=== PATIENT | male | born 1965 | race Caucasian/White ===

== ENCOUNTER 2023-06-16 12:23 | Emergency (ER) | payer MEDICAID, SELFPAY ==
[2023-06-16 13:20] LABS: Basophils # 0.1 10^3/uL (0.0-0.1); Basophils % 1.2 %; Eosinophils # 0.3 10^3/uL (0.0-0.8); Hematocrit 46.4 % (37-53); Lymphocytes # 1.9 10^3/uL (0.8-4.8); Lymphocytes % 24.1 %; Mean Corpuscular HGB Conc 32.5 g/dL (30-55); Mean Corpuscular Hemoglobin 28.5 pg (27-33); Mean Corpuscular Volume 87.7 fl (82-101); Mean Platelet Volume 10.4 fL (7.4-10.4); Monocytes # 0.6 10^3/uL (0.2-0.9); Neutrophils # 4.81 10^3/uL (1.8-7.7); Neutrophils % 62.4 %; Nucleated Red Blood Cells % 0 %; Platelet Count 247 10^3/cmm (157-399); Red Blood Count 5.29 10^6/uL (3.85-5.65); Red Cell Distribution Width 12.9 % (12.1-15.1); White Blood Count 7.71 10^3/uL (3.29-11.43)
[2023-06-16 13:25] VITALS: BP 171/104; PULSE 68; RESP 16; TEMP 36.7; O2SAT 96; BMI 41.8
[2023-06-16 13:31] LABS: Alanine Aminotransferase 38 U/L (0-41); Albumin Level 4.1 g/dL (3.5-5.2); Alkaline Phosphatase 75 U/L (40-130); Anion Gap 15.6 (5-19); Aspartate Amino Transferase 24 U/L (0-40); Blood Urea Nitrogen 13 mg/dL (6-20); Calcium 9.2 mg/dL (8.5-10.5); Carbon Dioxide 24 mmol/L (22-29); Chloride 102 mmol/L (98-107); Glomerular Filtration Rate 86.7 mL/min (90-130); Glucose 130 mg/dL (65-115); Osmolality Calculated 288 mOsm/kg (285-295); Potassium 3.6 mmol/L (3.5-5.1); Sodium 138 mmol/L (136-145); Total Bilirubin 0.5 mg/dL (0.15-1.2); Total Protein 8.1 g/dL (6.6-8.7)
--- NOTE | 2023-06-16 14:04 | W.ED.MALEGU ---
HPI - Male Genitourinary General: Chief complaint: Urogenital-Male Stated complaint: blood in urine Time Seen by Provider: 06/16/23 14:03 Source: patient Mode of arrival: ambulatory Limitations: no limitations History of Present Illness: Patient is a 57-year-old male presents to ED today with a complaint of painless hematuria with clots. Patient states symptoms have been present over the past 1.5 weeks. He states his urine will be gross hematuria in the mornings and sometimes lighten up through the day before returning dark again in the evenings. He states he has passed large clots. He states sometimes the clots seem to obstruct his urethra and he has to push to urinate. Patient denies abdominal or back pain. He does have chronic back pains however states these have been present for 20 years and at baseline. He has no history of kidney stones. He is not a smoker. No family history of bladder cancers. MD Complaint: other (hematuria) Onset (ago): day(s) Duration: constant Severity: moderate Relieving factors: none Exacerbating factors: none Associated symptoms: Reports no associated symptoms; Deny dysuria Review of Systems Const: Denies: fever(s), chills, body aches, fatigue or malaise Card: Denies: chest pain Resp: Denies: dyspnea GI: Denies: abdominal pain : Reports: difficulty urinating (sometimes when he feels clots are obstructing his urethra); Denies: flank pain, dysuria, urinary frequency, urinary urgency, urinary hesitancy or urinary dribbling Musc: Reports: back pain ([id number] baseline); Denies: neck pain Skin/Breast: Denies: rash Neuro: Denies: headache(s), numbness in extremities, weakness in extremities, sensory changes or dizziness Physical Exam Const: COMMON NORMALS: no acute distress, patient oriented x3, no limitations, alert and well nourished GENERAL APPEARANCE: cooperative NUTRITIONAL APPEARANCE: obese ORIENTATION/CONSCIOUSNESS: Yes awake, Yes oriented to person, Yes oriented to place and Yes oriented to time Resp: COMMON NORMALS: normal respiratory effort and clear to auscultation bilaterally AUSCULTATION: clear to auscultation bilaterally Cardio: COMMON NORMALS: regular rate and regular rhythm RATE: regular rate RHYTHM: regular rhythm GI: COMMON NORMALS: Normal to inspection, nondistended, normoactive bowel sounds present, Soft to palpation, non-tender, No hepatosplenomegaly present and no masses PALPATION: Yes Soft to palpation and Yes No hepatosplenomegaly present : COMMON NORMALS: Yes no CVA tenderness BLADDER/KIDNEY EXAM: Yes no CVA tenderness Back/Pelvis: COMMON NORMALS: no CVA tenderness and thoracic and lumbar spine normal to inspection Neuro: COMMON NORMALS: patient oriented x3 SENSORIUM/ORIENTATION: Yes alert, Yes oriented to person, Yes oriented to place and Yes oriented to time Course Vital Signs: Vital signs: Vital Signs Temperature 98.1 F 06/16/23 13:25 Pulse Rate 72 06/16/23 16:21 Respiratory Rate 18 06/16/23 16:21 Blood Pressure 159/103 06/16/23 16:21 Pulse Oximetry 97 06/16/23 16:21 Oxygen Delivery Me thod Room Air 06/16/23 16:21 [facility] - Male Medical Decision Making Patient is a nice 57-year-old male here for complaints of painless hematuria over the past week. He has been passing clots. Blood work showing a normal white count. His kidney functions are normal. UA showing a large amount of blood. He does have positive nitrates and 5-[address] scan does show a bladder mass suspicious for malignancy. He does have several low-density areas in both kidneys that could represent metastatic disease. Radiologist commented these could be multifocal pyelonephritis however clinically I have a low suspicion for this. He also has a few pulmonary nodules as well as a left hepatic lesion all of which theoretically could be malignant. Patient does not have a primary care provider that he sees. I will have case management set him up with a stat urology appointment for cystoscopy and biopsy. I will also have them set him up with primary care provider. Return to ED precautions given. I will go ahead and place him on antibiotics given the UA findings. Medical Records I reviewed the patient's medical records. Lab Data I reviewed the patient's lab results. 06/16/23 12:57 06/16/23 12:57 Radiology Impressions Abdomen/Pelvis CT 06/16/23 14:33 IMPRESSION: 1. 2.3 cm x 2.3 cm x 2.5 cm urinary bladder mass near the right ureterovesical junction is suspicious for malignancy. Cystoscopy is recommended. 2. Several low-density areas in both kidneys could be metastatic disease. These could be multifocal pyelonephritis. Less likely these could be developing infarcts. Contrast-enhanced MRI could characterize these further. 3. A few 2 mm noncalcified pulmonary nodules. For patients at low risk (minimal or absent history of smoking and of other known risk factors), no routine follow-up is indicated. For patients at high risk (history of smoking or of other known risk factors), consider optional CT Chest at 12 months. (Reference: Rubio). 4. 1 cm low-density left hepatic lesion could be a cyst or hemangioma. Less likely this is a metastasis. Recommend further evaluation of this with contrast-enhanced MRI. 5. Additional details as above. REFERENCES: Rubio Jay, et al. Guidelines for Management of Incidental Pulmonary Nodules Detected on CT Images: From the Fleischner Society 2017. Radiology. 2017;284(1):228-243. Laboratory Results WBC 7.71 10^3/uL (3.29-11.43) 06/16/23 12:57 RBC 5.29 10^6/uL (3.85-5.65) 06/16/23 12:57 Hgb 15.10 g/dL (11.27-16.99) 06/16/23 12:57 Hct 46.4 % (37-53) 06/16/23 12:57 MCV 87.7 fl (82-101) 06/16/23 12:57 MCH 28.5 pg (27-33) 06/16/23 12:57 MCHC 32.5 g/dL (30-55) 06/16/23 12:57 RDW 12.9 % (12.1-15.1) 06/16/23 12:57 Plt Count 247 10^3/cmm (157-399) 06/16/23 12:57 MPV 10.4 fL (7.4-10.4) 06/16/23 12:57 Neut % (Auto) 62.4 % 06/16/23 12:57 Lymph % (Auto) 24.1 % 06/16/23 12:57 Snyder % (Auto) 8.0 % 06/16/23 12:57 Eos % (Auto) 4.0 % 06/16/23 12:57 Baso % (Auto) 1.2 % 06/16/23 12:57 Neut # (Auto) 4.81 10^3/uL (1.8-7.7) 06/16/23 12:57 Lymph # (Auto) 1.9 10^3/uL (0.8-4.8) 06/16/23 12:57 Snyder # (Auto) 0.6 10^3/uL (0.2-0.9) 06/16/23 12:57 Eos # (Auto) 0.3 10^3/uL (0.0-0.8) 06/16/23 12:57 Baso # (Auto) 0.1 10^3/uL (0.0-0.1) 06/16/23 12:57 Nucleated RBC % (auto) 0 % 06/16/23 12:57 Nucleated RBCs # 0.0 /100WBC 06/16/23 12:57 Sodium 138 mmol/L (136-145) 06/16/23 12:57 Potassium 3.6 mmol/L (3.5-5.1) 06/16/23 12:57 Chloride 102 mmol/L (98-107) 06/16/23 12:57 Carbon Dioxide 24 mmol/L (22-29) 06/16/23 12:57 Anion Gap 15.6 (5-19) 06/16/23 12:57 BUN 13 mg/dL (6-20) 06/16/23 12:57 Creatinine 0.9 mg/dL (0.7-1.2) 06/16/23 12:57 GFR Calculation 86.7 mL/min (90-130) L 06/16/23 12:57 Glucose 130 mg/dL (65-115) H 06/16/23 12:57 Calculated Osmolality 288 mOsm/kg (285-295) 06/16/23 12:57 Calcium 9.2 mg/dL (8.5-10.5) 06/16/23 12:57 Total Bilirubin 0.5 mg/dL (0.15-1.2) 06/16/23 12:57 AST 24 U/L (0-40) 06/16/23 12:57 ALT 38 U/L (0-41) 06/16/23 12:57 Alkaline Phosphatase 75 U/L (40-130) 06/16/23 12:57 Total Protein 8.1 g/dL (6.6-8.7) 06/16/23 12:57 Albumin 4.1 g/dL (3.5-5.2) 06/16/23 12:57 Globulin 4.0 g/dL (1.3-4.6) 06/16/23 12:57 Urine Color Lisseth (Yellow) 06/16/23 12:00 Urine Appearance Cloudy (CLEAR) A 06/16/23 12:00 Urine pH 5 (5-7) 06/16/23 12:00 Ur Specific [place] 1.020 (1.005-1.030) 06/16/23 12:00 Urine Protein 2+ (Negative) H 06/16/23 12:00 Urine Glucose (UA) Norm (Normal) 06/16/23 12:00 Urine Ketones 1+ (Negative) H 06/16/23 12:00 Urine Blood 3+ (Negative) H 06/16/23 12:00 Urine Nitrate Positive (Negative) H 06/16/23 12:00 Urine Bilirubin Neg (Negative) 06/16/23 12:00 Urine Urobilinogen Norm mg/dL (Negative) 06/16/23 12:00 Ur Leukocyte Esterase Trace (Negative) H 06/16/23 12:00 Urine RBC Too numerous to cnt /hpf (0-2) H 06/16/23 12:00 Urine WBC 5-10 /hpf (0-5) H 06/16/23 12:00 Ur Squamous Epith Cells 0-4 /hpf (0-5) H 06/16/23 12:00 Amorphous Sediment Not Reportable 06/16/23 12:00 Urine Bacteria 1+ /hpf (NONE) H 06/16/23 12:00 All radiology interpretation(s) finalized by discharge Discharge Plan Discharge Patient Disposition: Home Clinical Impression: Bladder mass Hematuria Qualifiers: Hematuria type: gross Qualified Code(s): R31.0 - Gross hematuria Condition: Stable Prescriptions: New ciprofloxacin HCl [Cipro] 500 mg tablet 500 mg PO Q12H Qty: 14 0RF Discharge Orders: Discharge ED (Routine); Ordered 06/16/23 Ordered By: Deb Smith Patient Instructions: Hematuria - Male, Hematuria (ED), Cystoscopy (DC), Bladder Biopsy (DC) Activity Restrictions/Additional Instructions: As we discussed we will have case management set you up with the urology appointment for cystoscopy and probable biopsy of your bladder mass. They will also help set you up with a primary care provider. As we discussed, without a Marin catheter, you are going to be prone to urinary obstruction. You have declined a Marin catheter today. I would like you to drink large amounts of water throughout the day to help dilute the urine in hopes that you do not obstruct your urethra with a blood clot. You need to return to the emergency department if you are unable to urinate, begin to develop fevers, have flank pain, or any other concerns you may have. 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
--- NOTE | 2023-06-16 14:33 | CTR_ITS ---
PROCEDURE INFORMATION: Exam: CT Abdomen And Pelvis With Contrast Exam date and time: 06/16/2023 3:42 PM Age: 57 years old Clinical indication: Other: Hematuria with clots; Additional info: Asymptomatic gross hematuria with clots TECHNIQUE: Imaging protocol: Computed tomography of the abdomen and pelvis with contrast. Radiation optimization: All CT scans at this facility use at least one of these dose optimization techniques: automated exposure control; mA and/or kV adjustment per patient size (includes targeted exams where dose is matched to clinical indication); or iterative reconstruction. Contrast material: OMNI 350; Contrast volume: 100 ml; Contrast route: INTRAVENOUS (IV); COMPARISON: No relevant prior studies available. RADIATION DOSE METRICS: Total DLP (mGy-cm): 1206 FINDINGS: Lungs: A few 2 mm noncalcified nodules in the lung bases. Small amount of lingular scarring or platelike atelectasis. Otherwise, unremarkable. Liver: 1 cm low-density lesion in the medial segment of the left lobe of the liver may be a cyst or hemangioma. This is too small to accurately characterize. It could conceivably be a metastasis. Otherwise, unremarkable. Gallbladder and bile ducts: Small gallbladder calculus. Question tiny polyp from the gallbladder fundal wall. Otherwise, unremarkable. Pancreas: Normal. No ductal dilation. Spleen: Normal. No splenomegaly. Adrenal glands: Normal. No mass. Kidneys and ureters: There are several ill-defined low-density areas in both kidneys. These are not cysts. This could be multifocal pyelonephritis. Less likely these are developing renal infarcts. Alternatively, they may more likely be multifocal malignancy, particularly given the suspected bladder neoplasm and the lack of inflammatory changes involving the ureters and urinary bladder. Otherwise, unremarkable. Stomach and bowel: Unremarkable. No obstruction. No mucosal thickening. Appendix: No evidence of appendicitis. Intraperitoneal space: Unremarkable. No free air. No significant fluid collection. Vasculature: Unremarkable. No abdominal aortic aneurysm. Lymph nodes: Unremarkable. No enlarged lymph nodes. Urinary bladder: 2.3 cm by 2.3 cm by 2.5 cm soft tissue mass in the urinary bladder near the right ureterovesical junction is suspicious for malignancy. Cystoscopy is recommended. Otherwise, unremarkable. Reproductive: Unremarkable as visualized. Bones/joints: Minimal and mild multilevel spondylosis. Otherwise, unremarkable. Soft tissues: Small bilateral fat containing inguinal hernias. Small benign-appearing fat containing umbilical hernia. Otherwise, unremarkable visualized body wall. Otherwise, unremarkable soft tissues. CT/CT abdomen pelvis w con* [id number] IMPRESSION: 1. 2.3 cm x 2.3 cm x 2.5 cm urinary bladder mass near the right ureterovesical junction is suspicious for malignancy. Cystoscopy is recommended. 2. Several low-density areas in both kidneys could be metastatic disease. These could be multifocal pyelonephritis. Less likely these could be developing infarcts. Contrast-enhanced MRI could characterize these further. 3. A few 2 mm noncalcified pulmonary nodules. For patients at low risk (minimal or absent history of smoking and of other known risk factors), no routine follow-up is indicated. For patients at high risk (history of smoking or of other known risk factors), consider optional CT Chest at 12 months. (Reference: Rubio). 4. 1 cm low-density left hepatic lesion could be a cyst or hemangioma. Less likely this is a metastasis. Recommend further evaluation of this with contrast-enhanced MRI. 5. Additional details as above. REFERENCES: Rubio Jay, et al. Guidelines for Management of Incidental Pulmonary Nodules Detected on CT Images: From the Fleischner Society 2017. Radiology. 2017;284(1):228-243.
[2023-06-16 14:38] LABS: Add Urine Microscopic? YES; Bilirubin Urine Neg (Negative); Blood Urine 3+ (Negative); Glucose Urine UA Norm (Normal); Ketones Urine 1+ (Negative); Leukocyte Esterase Urine Trace (Negative); Nitrate Urine Positive (Negative); Protein Urine 2+ (Negative); Urine Appearance Cloudy (CLEAR); Urine Color Amber (Yellow); Urobilinogen Urine Norm (Negative); pH Urine 5 (5-7)
[2023-06-16 14:39] LABS: Add Urine Culture? Yes; Bacteria Urine 1+ /hpf; RBC Urine TOO NUMEROUS TO CNT /hpf (0-2); Squamous Epithelial Cell Urine 0-4 /hpf (0-5)
--- NOTE | 2023-06-16 15:40 | PC.NURSE ---
to CT scan
[2023-06-16] MEDS: iohexol 350 mg/mL 500 mL Btl (per mL) IV (15:45)
[2023-06-16 16:21] VITALS: BP 159/103; PULSE 72; RESP 18; O2SAT 97
--- NOTE | 2023-07-01 08:24 | DCPLANNER ---
Message sent to clinic for a primary care- Patient would also like to be seen at [facility]-
--- NOTE | 2023-07-04 08:42 | DCPLANNER ---
I faxed referral to [facility] on 07/04/23 at 0843. Fax number faxed to was: [phone].
== END 2023-06-16 16:39 | disposition home or self-care (01) ==
PROVIDERS: Emergency Medicine; Emergency Provider Physician Assistant
DX: R31.0 Gross hematuria (principal); N32.9 Bladder disorder, unspecified
CPT/HCPCS: 36415; 74177; 80053; 81001; 85025; 87086; 99285; Q9967

== ENCOUNTER 2024-01-22 08:04 | Outpatient (CLI) | payer MEDICAID, SELFPAY ==
--- NOTE | 2024-01-22 08:12 | MR_ITS ---
WS: [id number] MRI ABDOMEN WITHOUT AND WITH GADOLINIUM ENHANCEMENT TECHNIQUE: Coronal T2 Fase BH, Axial T2 Fase BH, Axial T2 FS BH, Zxial 3D Oates BH, Axial DWI BH, 2D MRCP Radial BH, 3D MRCP (Resp), and Axial 3D Dyn BH Post sequences. CLINICAL INFORMATION: RENAL MASS COMPARISON: CT 06/16/2023 FINDINGS: Several tiny bilateral renal cortical cysts. Normal bilateral renal parenchymal enhancement. No hydro nephrosis in either kidney. No suspicious enhancing lesions in either kidney. Gallbladder is contracted. Tiny hepatic cyst. Diffuse fatty infiltration of the liver. Normal pancrea s. Normal common bile duct. Adrenal glands are normal. Normal renal parenchymal enhancement. Normal p ortal vein and splenic vein. Normal celiac and SMA. MR/MR abdomen wo/w con* [id number] Impression: 1. No hydronephrosis in either kidney. 2. Small bilateral renal cortical cysts. 3. No suspicious enhancing lesions in either kidney.
== END 2024-01-22 08:05 | disposition home or self-care (01) ==
LOC: RAD 08:05
PROVIDERS: PCP Internal Medicine; Visit Provider Internal Medicine
DX: Q61.02 Congenital multiple renal cysts (principal); K82.0 Obstruction of gallbladder; K76.0 Fatty (change of) liver, not elsewhere classified
CPT/HCPCS: 74183; A9577

== ENCOUNTER 2024-07-27 07:50 | Outpatient (CLI) | payer MEDICAID, SELFPAY ==
--- NOTE | 2024-07-27 07:57 | MR_ITS ---
WS: [id number] MRI PELVIS WITH AND WITHOUT CONTRAST. COMPARISON: MRI 01/22/[address] 06/16/2023 Multiplanar, multisequence imaging is performed with and without contrast. MultiHance 20 mL. Large, irregular, heterogeneous mass centered at the base and trigone of the urinary bladder. This is a very heterogeneous mass with lobulated irregular margins. Mass encases the distal RIGHT ureter. Mass measures 4.5 x 6.0 x 4.7 cm and is greater to the RIGHT. Mass extends towards the urethra orifice. Mass encases and obstructs the RIGHT ureter. RIGHT ureter is dilated to 9 mm. Postcontrast imaging demonstrates diffuse enhancement throughout the mass. No enhancement within the distal ureter. Very distal ureter is being obstructed by the bladder mass. Prostate gland does appear to be a separate entity. Dilated seminal vesicles. No adenopathy noted. Small benign lymph nodes in the inguinal regions. Inguinal canals are patent containing fat. No destructive bone lesions or signal changes. MR/MR pelvis wo/w con [id number] IMPRESSION: 1. Large intraluminal bladder mass measures 4.5 x 6.0 x 4.7 cm. Uroepithelial mass at the base of the bladder and encases the RIGHT ureter with ureteral obst ruction. Mass was noted on the prior CT from 06/16/2023 with interval progressio n. 2. RIGHT ureter is dilated to 9 mm. The kidney was not included on this examin ation but there is a high likelihood of RIGHT hydronephrosis. 3. No adenopathy.
[2024-07-27] MEDS: gadobenate dimeglumine 20 mL vial IV (08:51)
== END 2024-07-27 07:51 | disposition home or self-care (01) ==
LOC: RAD 07:51
PROVIDERS: PCP Internal Medicine; Visit Provider Family Medicine
DX: N32.89 Other specified disorders of bladder (principal); N13.8 Other obstructive and reflux uropathy; N28.82 Megaloureter; N50.89 Other specified disorders of the male genital organs; R59.0 Localized enlarged lymph nodes
CPT/HCPCS: 72197

== ENCOUNTER 2025-03-25 15:22 | Outpatient (CLI) | payer MEDICAID, SELFPAY ==
--- NOTE | 2025-03-25 15:28 | US_ITS ---
WS: [id number] RENAL ULTRASOUND HISTORY: STAGE 3B CHRONIC KIDNEY DZ/HTN COMPARISON: 01/22/2024 MRI, MRI pelvis 07/27/2024 TECHNIQUE: 2-D and color Doppler imaging of the kidney submitted. Right kidney: 12.7 cm x 7.2 cm x 6.3 cm. Cortex: 1.0 cm Normal size kidney. Diffuse cortical thinning and increased echogenicity. Moderate to severe hydronephrosis. Proximal ureter is also dilated. No solid mass. Left kidney: 12.2 cm x 5.5 cm x 6.2 cm. Cortex: 1.0 cm Normal size kidney with mild to moderate hydronephrosis. Proximal ureter is also dilated. No solid mass. Aorta: Minimally visualized. Urinary Bladder: Well-distended urinary bladder. There is a large mass at the base of the urinary bladder. Mass measures 6.0 x 4.3 x 7.7 cm. There is diffuse trabecular thickening throughout the bladder. This mass was previously identified and described on the MRI from 07/27/2024. US/US renal BI* [id number] IMPRESSION: 1. Moderate to severe RIGHT hydronephrosis and proximal ureteral dilatation. 2. Mild to moderate LEFT hydronephrosis and proximal ureteral dilatation. 3. Urinary bladder mass measuring 6.0 x 4.3 x 7.7 cm was described on 5.
== END 2025-03-25 15:23 | disposition home or self-care (01) ==
LOC: RAD 15:23
PROVIDERS: PCP Internal Medicine; Visit Provider Internal Medicine Nephrology
DX: I12.9 Hypertensive chronic kidney disease with stage 1 through stage 4 chronic kidney disease, or unspecified chronic kidney disease (principal); N18.32 Chronic kidney disease, stage 3b; N13.39 Other hydronephrosis; N32.89 Other specified disorders of bladder
CPT/HCPCS: 76770